=== PATIENT | female | born 1940 | race Caucasian/White ===

== ENCOUNTER 2016-10-03 20:21 | Emergency (ER) | payer MEDICARE ==
[2016-10-03] MEDS ORDERED: Sodium Chloride 0.9% 1,000 ML IV ONE (21:55)
--- NOTE | 2016-10-03 21:55 | C.PDOC ---
History Of Present Illness Patient presents to the ER with a complaint of blood in the toilet. Patient states she went to the bathroom this morning and noticed blood, especially after she wiped. Patients is not sure whether the bleeding is urinary or vaginal. Patient was started on macrobid today by PMD. Denies fever, chills, nausea or vomiting. Time Seen by Provider: 10/03/16 21:54 Chief Complaint (Nursing): Female Genitourinary History Per: Patient History/Exam Limitations: no limitations Onset/Duration Of Symptoms: Hrs (Since AM) Current Symptoms Are (Timing): Still Present Severity: None Pain Scale Rating Of: 0 Quality Of Discomfort: Other (No pain) Associated Symptoms: Other (Bleeding, unknown origin). denies: Fever, Chills, Nausea, Vomiting Alleviating Factors: None Recent travel outside of the [place]: No Past Medical History Reviewed: Historical Data, Nursing Documentation, Vital Signs Vital Signs: Last Vital Signs Temp 97.5 F L 10/03/16 22:57 Pulse 64 10/03/16 22:57 Resp 18 10/03/16 22:57 BP 127/72 10/03/16 22:57 Pulse Ox 98 10/03/16 23:18 - Medical History PMH: Arthritis, Diabetes, HTN, Hyperlipidemia Surgical History: No Surg Hx - [facility] Procedures CONTRAST AORTOGRAM (06/23/05) CONTRAST ARTERIOGRAM-LEG (06/23/05) Family History: States: No Known Family Hx - Social History Hx Tobacco Use: No Hx Alcohol Use: No Hx Substance Use: No - Immunization History Hx Tetanus Toxoid Vaccination: No Hx Influenza Vaccination: No Hx Pneumococcal Vaccination: No Review Of Systems Constitutional: Negative for: Fever, Chills Gastrointestinal: Negative for: Nausea, Vomiting Genitourinary: Positive for: Other (Blood from known origin) Physical Exam - Physical Exam Appears: Non-toxic Skin: Warm, Dry Oral Mucosa: Moist Chest: Symmetrical, No Tenderness Cardiovascular: Rhythm Regular, No Murmur Respiratory: No Rales, No Rhonchi, No Wheezing Gastrointestinal/Abdominal: Soft, Tenderness (Mild suprapubic), No Guarding, No Rebound Neurological/Psych: Oriented x3 ED Course And Treatment - Laboratory Results Result Diagrams: 10/03/16 22:25 10/03/16 22:25 ECG: Interpreted By Me, Viewed By Me ECG Rhythm: Sinus Rhythm (60), Nonspecific Changes O2 Sat by Pulse Oximetry: 98 (Room air) Pulse Ox Interpretation: Normal - Radiology CXR: Interpreted by Me Progress Note: Blood work, EKG and CXR ordered. Reevaluation Time: 00:41 Reassessment Condition: Improved Disposition Counseled Patient/Family Regarding: Studies Performed, Diagnosis, Need For Followup, Rx Given - Disposition Referrals: Julio Herman MD [Medical Doctor] - Disposition: HOME/ ROUTINE Disposition Time: 21:55 Condition: FAIR Prescriptions: Ibuprofen [Motrin] 1 tab PO TID PRN #15 tab PRN Reason: Pain Instructions: Renal Colic (ED), Kidney Stones (DC), Acute Hematuria (DC) Print Language: NEPALESE - Clinical Impression Clinical Impression: Renal colic, Kidney stone, Hematuria - Scribe Statement The provider has reviewed the documentation as recorded by the Scribfernanda Peoples All medical record entries made by the Scribe were at my direction and personally dictated by me. I have reviewed the chart and agree that the record accurately reflects my personal performance of the history, physical exam, medical decision making, and the department course for this patient. I have also personally directed, reviewed, and agree with the discharge instructions and disposition.
[2016-10-03 21:57] LABS: RBC URINE 9 /hpf (0-3); URINE BACTERIA RARE (<OCC); URINE BILIRUBIN NEGATIVE (NEGATIVE); URINE COLOR Red (YELLOW); URINE GLUCOSE (UA) NORMAL (Normal); URINE KETONE NEGATIVE (NEGATIVE); URINE LEUKOCYTE ESTERASE NEG Leu/uL (Negative); URINE PROTEIN NEGATIVE (NEGATIVE); WBC URINE 4 /hpf (0-5)
[2016-10-03 21:58] LABS: URINE BLOOD 1+ (NEGATIVE)
[2016-10-03 22:32] LABS: BASO # 0.1 K/uL (0.0-0.2); EOS # 0.3 K/uL (0.0-0.7); EOS % 3.9 % (0.0-4.0); HEMATOCRIT 40.4 % (34.0-47.0); LYMPH # 2.7 K/uL (1.0-4.3); LYMPH % 39.2 % (20.0-40.0); MEAN CELL VOLUME 86.4 fL (81.0-99.0); MEAN CORPUSCULAR HEMOGLOBIN 27.6 pg (27.0-31.0); MEAN PLATELET VOLUME 9.2 fL (7.2-11.7); MONO # 0.5 K/uL (0.0-0.8); MONO % 7.1 % (0.0-10.0); RED CELL DISTRIBUTION WIDTH 14.9 % (11.5-14.5); WHITE BLOOD COUNT 6.9 K/uL (4.8-10.8)
[2016-10-03 22:37] LABS: CHLORIDE 105 mmol/L (98-107); SODIUM 142 mmol/L (132-148)
[2016-10-03 22:38] LABS: POTASSIUM 3.5 mmol/L (3.6-5.2)
[2016-10-03 22:40] LABS: ALB/GLOB RATIO 1.4 (1.0-2.1); ALKALINE PHOSPHATASE 72 U/L (38-126); ALT/SGPT 34 U/L (9-52); AST/SGOT 30 U/L (14-36); BILIRUBIN,TOTAL 0.6 mg/dL (0.2-1.3); BLOOD UREA NITROGEN 13 mg/dL (7-17); CARBON DIOXIDE 25 mmol/L (22-30); GFR AFRICAN-AMERICAN > 60; GLUCOSE,RANDOM 105 mg/dL (65-105); TOTAL PROTEIN 7.5 g/dL (6.3-8.3)
[2016-10-03 22:41] LABS: CALCIUM 9.4 mg/dl (8.6-10.4)
[2016-10-03] MEDS ORDERED: Sodium Chloride 0.9% 1,000 ML ONE (23:05)
[2016-10-03 23:19] VITALS: O2SAT 98
[2016-10-04 01:05] VITALS: BP 139/68; PULSE 68; RESP 20; TEMP 97.6
--- NOTE | 2016-10-04 09:14 | CT ---
PROCEDURE: CT Abdomen and Pelvis without intravenous contrast HISTORY: Hematuria. COMPARISON: None. TECHNIQUE: Multiple contiguous axial images were performed through the abdomen and pelvis without intravenous contrast. Subsequently, sagittal and coronal reformatted images were obtained. Radiation dose: Total exam DLP = 239 mGy-cm. This CT exam was performed using one or more of the following dose reduction techniques: Automated exposure control, adjustment of the mA and/or kV according to patient size, and/or use of iterative reconstruction technique. FINDINGS: LOWER THORAX: Coronary and mitral calcifications. Small airway trapping and microatelectasis in the lung londono. Scattered atelectasis at the lung bases. 5 millimeter subpleural calcification along the lateral aspect of the right lower lobe. 4 millimeter pulmonary nodule along the anterior aspect of the right middle lobe. LIVER: Hepatomegaly and fatty infiltration of the liver. GALLBLADDER AND BILE DUCTS: Prior cholecystectomy. PANCREAS: Unremarkable. No gross lesion or ductal dilatation. SPLEEN: Unremarkable. ADRENALS: Unremarkable. No mass. KIDNEYS AND URETERS: Few punctate nonobstructing right renal calculi the largest of which is in the lower pole best seen on series 3, image 69 measuring 4 millimeters. No hydronephrosis. VASCULATURE: Atheromatous changes of a normal caliber aorta and branch vessels. BOWEL: Diverticulosis. APPENDIX: No findings to suggest acute appendicitis. PERITONEUM: Unremarkable. No free fluid. No free air. LYMPH NODES: Unremarkable. No enlarged lymph nodes. BLADDER: Unremarkable. REPRODUCTIVE: Prior hysterectomy. BONES: Osteopenia. Spondylosis and facet arthrosis. Question minimal anterolisthesis of L4 on L5. OTHER FINDINGS: None. IMPRESSION: Punctate right nonobstructing renal calculi, the largest of which is seen in the lower pole measuring 4 millimeters. Recently passed renal calculus, colic, or infection is not excluded. Prior hysterectomy. Further evaluation of possible vaginal bleeding as clinically indicated. Hepatomegaly and fatty infiltration of the liver. 4 millimeter pulmonary nodule along the anterior aspect of the right middle lobe. Correlation with chest CT may be helpful if clinically indicated. Additional findings as above. These findings were preliminarily reported at 12:24 a.m. on 10/04/[address] Berta Byrnes from [facility].
--- NOTE | 2016-10-04 11:41 | RAD ---
PROCEDURE: CHEST RADIOGRAPH, 1 VIEW HISTORY: vag bleed COMPARISON: Comparison made with chest radiographs 11/14/2010 FINDINGS: LUNGS: Mild bibasilar atelectasis and or scarring. No focal consolidation. Re- demonstrated is a small nodular density left lung apex that overlies the left anterior 2nd rib. Could represent a small calcified granuloma or bone island which was seen on the prior study. Repeat radiographs in 2 months could performed to assess stability and exclude other pathology. PLEURA: No pneumothorax or pleural fluid seen. CARDIOVASCULAR: Normal. OSSEOUS STRUCTURES: Minor multilevel degenerative spondylosis. VISUALIZED UPPER ABDOMEN: Normal. OTHER FINDINGS: None. IMPRESSION: Minor bibasilar atelectasis and or scarring.No focal consolidation. Re- demonstrated is a small nodular density left lung apex that overlies the left anterior 2nd rib. Could represent a small calcified granuloma or bone island which was seen on the prior study. Repeat radiographs in 2 months could performed to assess stability and exclude other pathology. Note that this report was placed PA review folder followup
== END 2016-10-04 01:05 | disposition home or self-care (01) ==
LOC: C.ER 20:21
DX: N20.0 Calculus of kidney (principal); R31.9 Hematuria, unspecified
CPT/HCPCS: 71010; 74176; 80053; 81001; 85025; 85610; 85730; 86850; 86900; 99285; J7040

== ENCOUNTER 2017-03-29 08:29 | Day surgery (SDC) | payer MEDICARE, MEDICAID ==
[2017-03-29 09:02] VITALS: BMI 21.9
[2017-03-29] MEDS ORDERED: Lactated Ringer's 500 ML IV ONE (10:42)
[2017-03-29] MEDS ORDERED: Propofol 10 mg/ml Inj (20 ML) ONE ×2 (10:44)
[2017-03-29 10:58] VITALS: O2SAT 100
[2017-03-29 11:49] VITALS: TEMP 97
[2017-03-29 12:17] VITALS: RESP 12
[2017-03-29 12:37] VITALS: BP 128/64; PULSE 71
== END 2017-03-29 12:36 | disposition home or self-care (01) ==
LOC: C.ENDO 08:29
PROVIDERS: ATTEND Internal Medicine Gastroenterology
DX: Z12.11 Encounter for screening for malignant neoplasm of colon (principal); D12.2 Benign neoplasm of ascending colon; K57.90 Diverticulosis of intestine, part unspecified, without perforation or abscess without bleeding; K64.8 Other hemorrhoids
CPT/HCPCS: 45385; 82948; 88305; J2001; J2704; J7120

== ENCOUNTER 2017-07-06 08:00 | Day surgery (SDC) | payer MEDICARE, MEDICAID ==
[2017-06-21 10:26] VITALS: BMI 21.3
[2017-07-06] MEDS ORDERED: Lactated Ringer's 1,000 ML IV ONE ×2 (11:10)
[2017-07-06] MEDS ORDERED: Propofol 10 mg/ml Inj (20 ML) ONE ×2 (11:11→11:46)
--- NOTE | 2017-07-06 11:13 | CP.SDSHP ---
Same Day Surgery H & P - History Proposed Procedure: colonoscopy Pre-Op Diagnosis: history of polyps - Previous Medical/Surgical History Endocrine/Metabolic: Diabetes - Allergies Allergies: Allergies shrimp Allergy (Mild, Verified 03/29/17 09:02) RASH - Physical Exam General Appearance: NAD Vital Signs: Vital Signs 07/06/17 08:16 Temperature 97.5 F L Pulse Rate 80 Respiratory 20 Rate Blood Pressure 137/67 O2 Sat by Pulse 100 Oximetry Mental Status: Alert & Oriented x3 Neuro: WNL Heart: WNL Lungs: WNL GI: WNL - {Optional Preform as Required} Abdomen: WNL - Impression Pt. Evaluated Today:Candidate for Anesthesia & Procedure: Yes - Date & Time Date: 07/06/17 Time: 11:13 Short Stay Discharge - Short Stay Discharge Admitting Diagnosis/Reason for Visit: SCREENING Disposition: HOME/ ROUTINE
[2017-07-06 13:40] VITALS: BP 145/69; PULSE 69; RESP 14; TEMP 98; O2SAT 99
== END 2017-07-06 12:45 | disposition home or self-care (01) ==
LOC: C.ENDO 08:00
PROVIDERS: ATTEND Internal Medicine Gastroenterology
DX: Z12.11 Encounter for screening for malignant neoplasm of colon (principal); E11.9 Type 2 diabetes mellitus without complications; D12.2 Benign neoplasm of ascending colon; D12.0 Benign neoplasm of cecum; D12.4 Benign neoplasm of descending colon; K64.8 Other hemorrhoids; K57.30 Diverticulosis of large intestine without perforation or abscess without bleeding
CPT/HCPCS: 45380; 45384; 82948; 88305; J2704; J3010; J7120

== ENCOUNTER 2017-11-15 14:41 | Emergency (ER) | payer MEDICARE, OTHER ==
[2017-11-15 14:41] VITALS: BMI 21.3
[2017-11-15 14:56] VITALS: BP 155/78; PULSE 78; RESP 16; TEMP 98.6; O2SAT 98
--- NOTE | 2017-11-15 15:47 | RAD ---
Date of service: 11/15/2017 PROCEDURE: Left Wrist Radiographs. HISTORY: LEFT WRIST PAIN COMPARISON: None. FINDINGS: BONES: Small ossific fragment dorsal to the 1st carpal row on the lateral view. JOINTS: Diffuse joint space narrowing. SOFT TISSUES: Dorsal wrist soft tissue swelling. OTHER FINDINGS: None. IMPRESSION: Suggestion of triquetrum fracture.
--- NOTE | 2017-11-15 15:59 | C.PDOC ---
History Of Present Illness 77 year old female presents to the ED for evaluation of left wrist pain which began 2 days ago. Patient denies any specific injuries to the area. Patient applied Bengay to the area, and states that after the Bengay it became red. She denies fever, chills, sensory changes. Time Seen by Provider: 11/15/17 15:09 Chief Complaint (Nursing): Abnormal Skin Integrity History Per: Patient History/Exam Limitations: no limitations Onset/Duration Of Symptoms: Days (2) Current Symptoms Are (Timing): Still Present Location Of Injury: Left: Wrist Quality Of Symptoms: Painful Additional History Per: Patient Past Medical History Reviewed: Historical Data, Nursing Documentation, Vital Signs Vital Signs: Last Vital Signs Temp 98.6 F 11/15/17 14:54 Pulse 78 11/15/17 14:54 Resp 16 11/15/17 14:54 BP 155/78 H 11/15/17 14:54 Pulse Ox 98 11/15/17 23:24 - Medical History PMH: Anxiety, Arthritis, Asthma, Diabetes, Hypercholesterolemia, Hyperlipidemia , Kidney Stones (3 MONTHS AGO; DISSOLVED), Chronic Kidney Disease Surgical History: Cholecystectomy - [facility] Procedures CONTRAST AORTOGRAM (06/23/05) CONTRAST ARTERIOGRAM-LEG (06/23/05) Family History: States: No Known Family Hx - Social History Hx Tobacco Use: No Hx Alcohol Use: No Hx Substance Use: No - Immunization History Hx Tetanus Toxoid Vaccination: No Hx Influenza Vaccination: No Hx Pneumococcal Vaccination: No Review Of Systems Constitutional: Negative for: Fever, Chills Musculoskeletal: Positive for: Other (left wrist pain ). Negative for: Hand Pain Skin: Negative for: Rash Neurological: Negative for: Weakness, Numbness Physical Exam - Physical Exam Appears: Well, Non-toxic, No Acute Distress Skin: Normal Color, Warm, Dry, No Rash Oral Mucosa: Moist Cardiovascular: Rhythm Regular Respiratory: Normal Breath Sounds, No Rales, No Rhonchi, No Wheezing Extremity: Normal ROM (left digits ), Capillary Refill (< 2 sec all digits ), No Deformity, Other (dorsal aspect of left mid-wrist is tender to palpation with mild erythema and swelling ) Pulses: Left Radial: Normal, Right Radial: Normal Neurological/Psych: Oriented x3, Normal Sensation Gait: Steady ED Course And Treatment O2 Sat by Pulse Oximetry: 98 (on RA) Pulse Ox Interpretation: Normal - Other Rad left wrist XR X-Ray: Viewed By Me, Read By Radiologist Interpretation: PROCEDURE: Left Wrist Radiographs. . HISTORY: LEFT WRIST PAIN. COMPARISON: None. FINDINGS: BONES: Small ossific fragment dorsal to the 1st carpal row on the lateral view. JOINTS: Diffuse joint space narrowing. SOFT TISSUES: Dorsal wrist soft tissue swelling. OTHER FINDINGS: None. IMPRESSION: Suggestion of triquetrum fracture. Progress Note: Patient given PO Motrin for pain. Xrays of left wrist ordered and reviewed, (+) for triquetrum fracture. Patient placed in left volar splint by ED ech and checked by me, (+) NV Intact. Patient instructed to follow up with hand surgery/orthopedics within 1 week. She understands she should return to ED if symptoms worsen. Reevaluation Time: 16:40 Reassessment Condition: Improved Disposition Counseled Patient/Family Regarding: Studies Performed, Diagnosis, Need For Followup, Rx Given - Disposition Referrals: Davide Larsen MD [Staff Provider] - [facility] [Outside] Disposition: HOME/ ROUTINE Disposition Time: 16:40 Condition: STABLE Additional Instructions: FOLLOW UP WITH HAND SURGEON/ORTHOPEDICS WITHIN 1 WEEK USE PAIN MEDICATION NEEDED RETURN TO EMERGENCY ROOM IF SYMPTOMS WORSEN SEGUIMIENTO CON SURGEON / ORTOPEDIA DE MANO DENTRO DE 1 SEMANA USE MEDICAMENTO PARA DOLOR SEGN SEA NECESARIO REGRESE AL [place]ILLA DE EMERGENCIA SI LOS SNTOMAS EMPEORAN Prescriptions: Acetaminophen [Tylenol 325mg tab] 650 mg PO Q6 PRN #30 tab PRN Reason: pain/fever Instructions: Wrist Fracture (DC) Forms: [employer] (Georgian) Print Language: CROATIAN - Clinical Impression Clinical Impression: Triquetral fracture - Scribe Statement The provider has reviewed the documentation as recorded by the Scribe (Hannah Davila) Provider Attestation: All medical record entries made by the Scribe were at my direction and personally dictated by me. I have reviewed the chart and agree that the record accurately reflects my personal performance of the history, physical exam, medical decision making, and the department course for this patient. I have also personally directed, reviewed, and agree with the discharge instructions and disposition.
== END 2017-11-15 17:15 | disposition home or self-care (01) ==
LOC: C.ER 14:41
DX: S62.112A Displaced fracture of triquetrum [cuneiform] bone, left wrist, initial encounter for closed fracture (principal); X58.XXXA Exposure to other specified factors, initial encounter; Y92.9 Unspecified place or not applicable